=== PATIENT | male | born 1965 | race Caucasian/White ===

== ENCOUNTER 2016-10-26 00:23 | Emergency (ER) | payer OTHER ==
[~2016-10-26] VITALS: Ht 180.3 cm; Wt 106.4 kg
[2016-10-26 01:17] LABS: BASOPHIL COUNT 0.1 K/uL (0-0.1); EOSINOPHIL (%) 0.5 % (0-5); EOSINOPHIL COUNT 0.1 K/uL (0-0.3); HEMATOCRIT 39.3 % (38.0-50.0); IMMATURE GRANULOCYTE (%) 0.5 % (0.0-0.7); IMMATURE GRANULOCYTE COUNT 0.1 K/uL; INSTRUMENT ABS NEUTROPHIL CT 6.3 K/uL; LYMPHOCYTE COUNT 1.8 K/uL (1.0-2.8); MCH 31.7 PG (29.0-34.0); MCHC 34.6 G/DL (30.0-36.0); MCV 91.6 FL (86-99); MEAN PLAT.VOLUME 9.3 uM^3 (9.0-12.4); MONOCYTE (%) 9.5 % (3-12); MONOCYTE COUNT 0.9 K/uL (0-0.8); NEUTROPHIL (%) 68.9 % (45-76); NEUTROPHIL COUNT 6.3 K/uL (1.8-6.4); PLATELET COUNT 218 K/uL (156-360); RBC DIS.WIDTH-CV 12.5 % (11.8-14.6); RBC DIS.WIDTH-SD 42.1 % (39-53); RED BLOOD COUNT 4.29 M/uL (4.00-5.50); WHITE BLOOD COUNT 9.1 K/uL (4.1-10.2)
[2016-10-26 01:26] LABS: CHLORIDE 104 mEq/L (99-109); POTASSIUM 3.5 mEq/L (3.7-5.4); SODIUM 138 mEq/L (136-147)
[2016-10-26 01:28] LABS: GLUCOSE 115 mg/dL (70-99)
[2016-10-26 01:29] LABS: ANION GAP 8 MEQ/L (2-14)
[2016-10-26 01:31] LABS: SERUM ETHYL ALCOHOL < 10 mg/dL
[2016-10-26 01:32] LABS: GFR ESTIMATE (CALCULATED) > 59 mL/min/
[2016-10-26 01:33] LABS: UREA NITROGEN (BUN) 16 mg/dL (9-23)
[2016-10-26 01:35] LABS: LIPASE 34 U/L (1.0-51.0)
[2016-10-26] MEDS ORDERED: AUGMENTIN875 MG PO (03:15)
[2016-10-26] MEDS ORDERED: ZOFRAN4 MG PO (03:15)
[2016-10-26] MEDS ORDERED: NAPROSYN500 MG PO (03:15)
[2016-10-26 04:45] VITALS: BP 132/72
== END 2016-10-26 06:01 | disposition home or self-care (01) ==
LOC: EME 00:23 → EDBD 00:23 → EME 06:01
PROVIDERS: Emergency Medicine
PROC: 3E0234Z Introduction of Serum, Toxoid and Vaccine into Muscle, Percutaneous Approach (ICD-10-PCS; principal; 2016-10-26)
DX: S06.0X9A Concussion with loss of consciousness of unspecified duration, initial encounter (principal); S70.02XA Contusion of left hip, initial encounter; S50.02XA Contusion of left elbow, initial encounter; H66.93 Otitis media, unspecified, bilateral; W17.89XA Other fall from one level to another, initial encounter; Y92.812 Truck as the place of occurrence of the external cause; Z23 Encounter for immunization; I10 Essential (primary) hypertension; F17.200 Nicotine dependence, unspecified, uncomplicated
CPT/HCPCS: 70450; 73080; 73502; 80048; 81003; 83690; 85025; 86900; 86901; 99281; 99285; G0480; J2270; J2405

== ENCOUNTER 2016-10-30 12:30 | Emergency (ER) | payer OTHER ==
[~2016-10-30] VITALS: Ht 180.3 cm; Wt 110.0 kg
[~2016-10-30 12:30] MED LIST: AUGMENTIN875 MG PO; NAPROSYN500 MG PO; ZOFRAN4 MG PO
[2016-10-30 13:25] VITALS: BP 163/85
[2016-10-30 14:39] LABS: MCH 31.4 PG (29.0-34.0); MCV 92.3 FL (86-99); MEAN PLAT.VOLUME 9.1 uM^3 (9.0-12.4); RBC DIS.WIDTH-CV 12.4 % (11.8-14.6); RBC DIS.WIDTH-SD 42.5 % (39-53); RED BLOOD COUNT 4.55 M/uL (4.00-5.50); WHITE BLOOD COUNT 7.8 K/uL (4.1-10.2)
[2016-10-30 14:40] LABS: PLATELET COUNT 298 K/uL (156-360)
[2016-10-30 14:47] LABS: CHLORIDE 105 mEq/L (99-109); POTASSIUM 4.1 mEq/L (3.7-5.4); SODIUM 141 mEq/L (136-147)
[2016-10-30 14:49] LABS: GLUCOSE 168 mg/dL (70-99)
[2016-10-30 14:50] LABS: ANION GAP 10 MEQ/L (2-14)
[2016-10-30 14:51] LABS: TOTAL BILIRUBIN 0.3 mg/dL (0.0-1.0)
[2016-10-30 14:53] LABS: ALKALINE PHOSPHATASE 50 IU/L (3-129); GFR ESTIMATE (CALCULATED) > 59 mL/min/
[2016-10-30 14:54] LABS: UREA NITROGEN (BUN) 16 mg/dL (9-23)
== END 2016-10-30 16:49 | disposition home or self-care (01) ==
LOC: EME 12:30
DX: S09.90XD Unspecified injury of head, subsequent encounter (principal); W18.30XD Fall on same level, unspecified, subsequent encounter; F17.200 Nicotine dependence, unspecified, uncomplicated
CPT/HCPCS: 80053; 85027; 99281; 99283